=== PATIENT | female | born 2000 | race Two or more races ===

== ENCOUNTER → 2025-05-29 | Outpatient (CLI) | payer MEDICAID, SELFPAY ==
--- NOTE | 2025-05-29 08:41 | XR_ITS ---
Examination: Ultrasound soft tissue extremity left arm TECHNIQUE: Grayscale sonographic images soft tissue upper left arm Date and time: May 29, 2025, 0846 hours INDICATIONS: Left upper arm palpable lump and skin discoloration post vaccine administration 1 month ago FINDINGS: No cystic or solid mass IMPRESSION: No cystic or solid mass
== END | disposition home or self-care (01) ==
LOC: CDIM 08:32
PROVIDERS: Referring Provider Nurse Practitioner Family; Visit Provider Nurse Practitioner Family
DX: R22.32 Localized swelling, mass and lump, left upper limb (principal)
CPT/HCPCS: 76604

== ENCOUNTER → 2025-07-19 | Outpatient (CLI) | payer MEDICAID, SELFPAY ==
--- NOTE | 2025-07-19 10:10 | XR_ITS ---
EXAMINATION: Cervical spine, 5 views Technique: Cervical spine AP, AP odontoid, lateral, bilateral obliques, 5 views Exam date and time: July 19, 2025, 1017 hours INDICATIONS: Neck pain months. FINDINGS: Straightening normal cervical lordosis. No cervical fracture. Minimal disc narrowing at C4-C5 No significant neuroforaminal stenosis Intact odontoid IMPRESSION: Minimal disc narrowing C4-C5
== END | disposition home or self-care (01) ==
LOC: CDIM 09:46
PROVIDERS: PCP Nurse Practitioner Family; Referring Provider Nurse Practitioner Family; Visit Provider Nurse Practitioner Family
DX: M48.02 Spinal stenosis, cervical region (principal)
CPT/HCPCS: 72050